=== PATIENT | female | born 1975 | race Caucasian/White ===

== ENCOUNTER 2018-10-06 02:00 | Inpatient (IN) ==
[2018-10-06] MEDS ORDERED: Morphine Inj 4 MG/ML Vial IV.PUSH ONE (02:21)
--- NOTE | 2018-10-06 02:25 | ED ---
HPI General Chief Complaint: Abdominal Pain Stated Complaint: ABD Pain Time Seen by Provider: 10/06/18 02:21 Source: patient Mode of arrival: ambulatory Limitations: no limitations History of Present Illness MD complaint: Reports abdominal pain Onset (ago): minute(s) Pain Consistency: constant Location: Reports LLQ and suprapubic Severity: severe Quality: Reports cramping, stabbing, aching and fullness Radiation: Reports LLQ and suprapubic Migration to: Reports LLQ and suprapubic Relieving factors: nothing Exacerbating factors: movement Context: Reports recent antibiotic use and history of similar episodes; Denies foreign travel, possible food poisoning, sick contacts, recent surgery/ procedure and recent injury Associated symptoms: Reports nausea; Denies vomiting, diarrhea, fever, chills, constipation, dysuria, hematemesis, hematochezia, melena, hematuria, anorexia and syncope Treatments prior to arrival: Denies NSAIDs, prescription analgesics and antacids Related Data Hx Last Menstrual Period: 2 weeks ago Patient : No Home Medications Medication Instructions Recorded Confirmed citalopram [Celexa] 20 mg PO DAILY 10/06/18 10/06/18 Allergies Allergy/AdvReac Type Severity Reaction Status Date / Time No Known Allergies Allergy Verified 10/06/18 02:01 Review of Systems ROS: all other systems reviewed are negative PMFSH Medical History Medical History Diverticulitis (Acute) Surgical History Surgical History History of (Acute) History of appendectomy (Acute) Social History Social History Substance History: No History of Abuse Second Hand Smoke Exposure: Yes Smoking Status: Current every day smoker Tobacco Type: Cigarettes How Often Do You Have a Drink Containing Alcohol: Never Recent Travel in [facility] within the Last 8 Weeks: No Recent Out of Country Travel within the Last 8 Weeks: No Immunization History Tetanus Immunization: <5 Years Exam Narrative Exam Narrative: GENERAL: Well-nourished, well-developed patient. SKIN: Focused skin assessment warm/dry. HEAD: Normocephalic. EYES: No scleral icterus. No injection or drainage. NECK: Supple, trachea midline. No JVD or lymphadenopathy. CARDIOVASCULAR: Regular rate and rhythm without murmurs, gallops, or rubs. RESPIRATORY: Breath sounds equal bilaterally. No accessory muscle use. GASTROINTESTINAL: Abdomen soft, very tender LLQ, nondistended. Pelvic exam: Normal external female exam no redness induration or lesions; bimanual exam no cervical motion tenderness no uterine enlargement no adnexal tenderness or enlargement. MUSCULOSKELETAL: No cyanosis, or edema. BACK: Nontender without obvious deformity. No CVA tenderness. Course Initial Documented Vital Signs Temperature 98.4 F 10/06/18 02:01 Pulse Rate 78 10/06/18 02:01 Respiratory Rate 16 10/06/18 02:01 Blood Pressure 143/76 H 10/06/18 02:01 Pulse Oximetry 97 10/06/18 02:01 Last Documented Vital Signs Temperature 99.1 F 10/07/18 03:58 Pulse Rate 88 10/07/18 03:58 Respiratory Rate 17 10/07/18 03:58 Blood Pressure 126/68 10/07/18 03:58 Pulse Oximetry 94 L 10/07/18 03:58 Medical Decision Making [facility] Narrative Medical decision making narrative: 43-year-old with history of diverticulitis with recent hospitalization times 10 days for acute diverticulitis currently not on antibiotic sudden onset of left lower quadrant pain radiating to the suprapubic region with associated nausea no vomiting no flank pain no reported dysuria frequency urgency hematuria or history of kidney stones. Patient was to have surgery however that was deferred. Patient states that pain is severe and worsened by ambulation; no report of vaginal discharge or vaginal bleeding. Last menstrual period 2 weeks ago and normal for her. Patient does have history of ovarian cyst. IV access obtained specimens collected and sent for resulting patient administered morphine sulfate 4 mg IV along with normal saline infusion and Zofran [address] abdomen pelvis ordered CT abdomen pelvis remarkable for acute diverticulitis with small collection of air next to the wall of the proximal sigmoid with associated wall thickening and multiple diverticulum per reading radiologist; patient is informed of imaging results Bimanual exam unremarkable for no acute intrapelvic pain or mass. Medical Screen Exam Complete: Yes Emergency Medical Condition: Yes Lab Data Result diagrams: 10/06/18 02:31 10/06/18 02:31 POC Results POC Urine Results Negative Lab Results 10/06/18 10/06/18 10/06/18 Range/Units 02:31 02:31 04:30 WBC 12.7 H (4.0-11.0) th/mm3 RBC 4.52 (4.00-5.30) mil/mm3 Hgb 13.7 (11.6-15.3) gm/dL Hct 39.7 (35.0-46.0) % MCV 87.8 (80.0-100.0) fL MCH 30.2 (27.0-34.0) pg MCHC 34.4 (32.0-36.0) % RDW 14.2 (11.6-17.2) % Plt Count 286 (150-450) th/mm3 MPV 8.6 (7.0-11.0) fL Neut % (Auto) 66.9 (16.0-70.0) % Lymph % (Auto) 24.7 (9.0-44.0) % Harmon % (Auto) 3.5 (0.0-8.0) % Eos % (Auto) 4.2 H (0.0-4.0) % Baso % (Auto) 0.7 (0.0-2.0) % Neut # (Auto) 8.5 H (1.8-7.7) th/mm3 Lymph # (Auto) 3.1 (1.0-4.8) th/mm3 Harmon # (Auto) 0.4 (0.0-0.9) th/mm3 Eos # (Auto) 0.5 H (0.0-0.4) th/mm3 Baso # (Auto) 0.1 (0.0-0.2) th/mm3 WBC Differential . Differential Comment Auto diff final Sodium 140 (136-145) meq/L Potassium 4.2 (3.5-5.1) meq/L Chloride 105 (98-107) meq/L Carbon Dioxide 28.4 (21.0-32.0) meq/L Anion Gap 7 (5-15) meq/L BUN 12 (7-18) mg/dL Creatinine 0.91 (0.50-1.00) mg/dL Estimated GFR 68 L (>89) mL/min Random Glucose 103 (74-106) mg/dL Calcium 8.9 (8.5-10.1) mg/dL Magnesium 2.2 (1.5-2.5) mg/dL Total Bilirubin 0.4 (0.2-1.0) mg/dL AST 19 (15-37) U/L ALT 27 (10-53) U/L Alkaline Phosphatase 70 (45-117) U/L Total Protein 7.5 (6.4-8.2) g/dL Albumin 3.7 (3.4-5.0) g/dL Lipase 92 (73-393) U/L Urine Color Yellow (Yellw/Straw) Urine Clarity Clear (Clear) Urine pH 6.0 (5.0-8.5) Ur Specific Owen 1.012 (1.002-1.035) Urine Protein Negative (Neg-Trace) mg/dL Urine Glucose (UA) Negative (Negative) mg/dL Urine Ketones Negative (Negative) mg/dL Urine Occult Blood Negative (Negative) Urine Nitrate Negative (Negative) Urine Bilirubin Negative (Negative) Urine Urobilinogen Less than 2 (Less than 2) mg/dL Ur Leukocyte Esterase Negative (Negative) Urine RBC 1 (0-3) /hpf Urine WBC Less than 1 (0-5) /hpf Ur Squamous Epith Cells 1 (0-5) /hpf Urine Bacteria Rare H (None) /hpf Urine Mucus Few H (Occasional) /lpf Micro UA Comment Culture not ind Ur Microscopic Review Not Reportable Urine Culture Comments Culture not ind Imaging Data Radiologist's impression: Abdomen X-Ray 10/06/18 00:00 CONCLUSION: Nonspecific bowel gas pattern with mildly distended air-filled loops of mid small bowel. Abdomen/Pelvis CT 10/06/18 02:21 CONCLUSION: 1. Acute diverticulitis involving the proximal sigmoid colon with small contained gas collection adjacent to the bowel. There is a small amount of fluid in the posterior pelvis. 2. The left ovary is more prominent than the right 3. Small noncalcified pulmonary nodule right lung base measuring approximately 6 mm. A one-year follow-up noncontrast chest CT is recommended. Discharge Plan Discharge Disposition Patient Disposition: 30 Still Patient Discharge Condition Condition: Stable Discharge Details Diagnosis: Diverticulitis, Pulmonary nodule, Cyst of left ovary Physicians Team ED Provider: Kelsey Patel Primary Care Provider: Jose M Alonso Attending Provider: Arnulfo Alva Other Providers: Josef Gagnon Status ED Status: Left Department Discharge Information Discharge Date/Time: 10/06/18 16:01
[2018-10-06] MEDS ORDERED: Sod Chloride 0.9% Inj 1,000 ML IV.CONT SCH (02:30)
[2018-10-06 02:38] LABS: Baso # (Auto) 0.1 th/mm3 (0.0-0.2); Baso % (Auto) 0.7 % (0.0-2.0); Eos # (Auto) 0.5 th/mm3 (0.0-0.4); Eos % (Auto) 4.2 % (0.0-4.0); Hematocrit 39.7 % (35.0-46.0); Hemoglobin 13.7 gm/dL (11.6-15.3); Lymph # (Auto) 3.1 th/mm3 (1.0-4.8); Lymph % (Auto) 24.7 % (9.0-44.0); Mean Corpuscular HGB Conc 34.4 % (32.0-36.0); Mean Corpuscular Hemoglobin 30.2 pg (27.0-34.0); Mean Corpuscular Volume 87.8 fL (80.0-100.0); Mean Platelet Volume 8.6 fL (7.0-11.0); Mono # (Auto) 0.4 th/mm3 (0.0-0.9); Mono % (Auto) 3.5 % (0.0-8.0); Neut # (Auto) 8.5 th/mm3 (1.8-7.7); Neut % (Auto) 66.9 % (16.0-70.0); Platelet Count 286 th/mm3 (150-450); Red Blood Count 4.52 mil/mm3 (4.00-5.30); Red Cell Distribution Width 14.2 % (11.6-17.2); White Blood Count 12.7 th/mm3 (4.0-11.0)
[2018-10-06 02:58] LABS: Alanine Aminotransferase 27 U/L (10-53); Albumin 3.7 g/dL (3.4-5.0); Anion Gap 7 meq/L (5-15); Aspartate Aminotransferase 19 U/L (15-37); Blood Urea Nitrogen 12 mg/dL (7-18); Calcium 8.9 mg/dL (8.5-10.1); Carbon Dioxide 28.4 meq/L (21.0-32.0); Chloride 105 meq/L (98-107); Glomerular Filtration Rate 68 mL/min (>89); Glucose,Random 103 mg/dL (74-106); Lipase 92 U/L (73-393); Magnesium 2.2 mg/dL (1.5-2.5); Potassium 4.2 meq/L (3.5-5.1); Sodium 140 meq/L (136-145)
[2018-10-06 03:00] LABS: Alkaline Phosphatase 70 U/L (45-117); Total Protein 7.5 g/dL (6.4-8.2)
[2018-10-06] MEDS ORDERED: Ketorolac Inj 30 MG/ML (IVP) Vial IV.PUSH ONE (03:33)
--- NOTE | 2018-10-06 04:40 | CT ---
EXAM DATE: 10/06/2018 4:19 AM EST AGE/SEX: 43 years / Female INDICATIONS: Left lower quadrant pain. CLINICAL DATA: This is the patient's initial encounter. Patient reports that signs and symptoms have been present for 1 day and indicates a pain score of 9/10. MEDICAL/SURGICAL HISTORY: Diverticulitis. Appendectomy. section. ORAL CONTRAST: No oral contrast ingested. RADIATION DOSE: 18.13 CTDI (mGy) COMPARISON: No prior exams available for comparison. TECHNIQUE: Multiple contiguous axial images were obtained through the abdomen and pelvis following b olus infusion of 95 ml Omnipaque 350 (iohexol) nonionic water-soluble contrast as a single exam dos e. No oral contrast ingested. Using automated exposure control and adjustment of the mA and/or kV ac cording to patient size, radiation dose was kept as low as reasonably achievable to obtain optimal di agnostic quality images. DICOM format image data is available electronically for review and comparis on. FINDINGS: Lower Lungs: The visualized lower lungs are clear except for a 6 mm noncalcified pulmonary nodule rig ht lower lobe. Liver: The liver has a homogeneous density without space-occupying lesion. There is no dilation of th e biliary tree. Spleen: Homogeneous density without enlargement. Pancreas: Unremarkable without mass or calcification. Kidneys: Normal in size and shape. No evidence of mass or hydronephrosis. Adrenal Glands: Unremarkable. Aorta: The aorta and proximal iliac vessels are grossly unremarkable without aneurysmal dilation. Bowel/Mesentery: No oral contrast was given. There is wall thickening and inflammatory change involv ing the proximal sigmoid colon with several diverticuli. There is a small contained gas collection ad jacent to the anterior bowel best seen on axial image #74. There is a small amount of fluid in the po sterior pelvis. There is a normal appendix. Abdominal Wall: Intact. Retroperitoneum: No evidence of adenopathy in the retrocrural, para-aortic, or deep pelvic regions. Bladder: Contours are smooth. Reproductive Organs: The uterus and right ovary are unremarkable in appearance. The left ovary is pr ominent in size measuring up to approximately 5 x 3.8 cm. Inguinal: The inguinal region is unremarkable without evidence of adenopathy. Bony Structures: Unremarkable. CONCLUSION: 1. Acute diverticulitis involving the proximal sigmoid colon with small contained gas collection adj acent to the bowel. There is a small amount of fluid in the posterior pelvis. 2. The left ovary is more prominent than the right 3. Small noncalcified pulmonary nodule right lung base measuring approximately 6 mm. A one-year foll ow-up noncontrast chest CT is recommended. Electronically signed by: Richard Carolina MD 10/06/2018 4:39 AM EST
[2018-10-06] MEDS ORDERED: Ciprofloxacin 400 MG/200 ML 400 MG/200 ML PIGGYBACK IV.SIG ONE (04:54)
[2018-10-06 04:59] LABS: Bacteria,Urine Rare /hpf; Bilirubin,Urine Negative (Negative); Clarity,Urine Clear (Clear); Color,Urine Yellow (Yellw/Straw); Glucose,Urine (UA) Negative (Negative); Leukocyte Esterase,Urine Negative (Negative); Mucus,Urine Few /lpf (Occasional); Nitrite,Urine Negative (Negative); Specific Gravity,Urine 1.012 (1.002-1.035); Squamous Epithelial Cell,Urine 1 /hpf (0-5)
[2018-10-06] MEDS ORDERED: Morphine Inj 4 MG/ML Vial IV.PUSH PRN (08:06)
[2018-10-06] MEDS: Sod Chloride 0.9% Inj 1,000 ML IV.CONT SCH ×3 (08:19→22:08)
[2018-10-06] MEDS ORDERED: Ketorolac Inj 30 MG/ML (IVP) Vial IV.PUSH PRN (08:50)
--- NOTE | 2018-10-06 08:55 | P.HPIM ---
History of Present Illness Primary Care Physician: Jose M Alonso Chief Complaint: Abdominal pain History of Present Illness: Mrs. Hernández is a pleasant 43 y/o female with recent history of diverticulitis in 07/2018. She reports that she was hospitalized at [facility] for 10 days with acute diverticulitis and SBO. Pt required NGT placement and was treated with IV Cipro and Flagyl. PT did not require any surgical intervention at that time. She states that after that discharge from the hospital her abdominal pain never fully resolved. She had another exacerbation of abdominal pain a few weeks ago and again was treated with oral Cipro and Flagyl. 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 No reported nausea/vomiting, diarrhea, fevers or chills. She was sent down to the ED for further evaluation. Labs in the ED noted elevated WBC count of 12.7. CT Abd/pelvis was performed and revealed acute diverticulitis involving the proximal sigmoid colon with small contained gas collection adjacent to the bowel, a small amount of fluid in the posterior pelvis, left ovary is more prominent than the right, and a small noncalcified pulmonary nodule right lung base measuring approximately 6 mm. Pt was given a dose of IV Morphine, Cipro and Flagyl in the ED and started on IVF. She reports that the Morphine did not help with the pain much at all. She states that her last BM was 2-3 days ago which is not unusual for her. She had been seen by GI outpt prior to this last occurrence of diverticulitis and was recommended to have an EGD/colonoscopy but was to be fully treated prior to these procedures. Past Medical Hx: Diverticulitis Hx of leukocytosis, etiology undetermined Depression TObacco use Past Surgical Hx: Cesarian section x 2 Appendectomy Family Hx: Both parent with previous diverticulitit Grandmother with hx of colon cancer in her 60-70s Social Hx: (+)Tobacco use, smokes 3/4 ppd x 20+ years Denies any alcohol or illicit drug use She is an RN at [employer] Diagnosis (1) Diverticulitis: (2) Pulmonary nodule: (3) Tobacco use: Inpatient Certification Inpatient Certification: I certify that the inpatient services were ordered in accordance with Medicare regulations governing the order. This includes certification that hospital inpatient services are reasonable and necessary and in the case of services not specified as inpatient-only under 42 CFR 419.22(n), that they are appropriately provided as inpatient services in accordance to with the 2-midnight benchmark under 43 CFR 412.3(e) Estimated Total Length of Stay (Days): 2 Plans for Post Hospital Care: Home Medications and Allergies Allergies Allergy/AdvReac Type Severity Reaction Status Date / Time No Known Allergies Allergy Verified 10/06/18 02:01 Home Medications Medication Instructions Recorded Confirmed Type citalopram [Celexa] 20 mg PO DAILY 10/06/18 10/06/18 History Active Medications: Active Medications Acetaminophen (Tylenol) 650 mg PO Q4H PRN PRN Reason: Temp > 100.4 Hydrocodone Bitart/Acetaminophen ([place] 5/325) 1 tab PO Q4H PRN PRN Reason: pain 2-10 Al Hydroxide/Mg Hydroxide (Milk Of Magnaby Liq) 30 ml PO Q12H PRN PRN Reason: Mild Constipation Citalopram Hydrobromide (Celexa) 20 mg PO DAILY RICH Sodium Chloride (Ns Inj) 1,000 mls @ 125 mls/hr IV.CONT .Q8H RICH Stop: 10/06/18 10:29 Last Admin: 10/06/18 02:35 Dose: 125 mls/hr Sodium Chloride (Ns Inj) 1,000 mls @ 100 mls/hr IV.CONT .Q10H RICH Last Admin: 10/06/18 08:19 Dose: 100 mls/hr Piperacillin/Tazobactam/Dextrose (Zosyn 3.375 Gm Premix) 50 mls @ 100 mls/hr IV.SIG Q6H [facility] Ketorolac Tromethamine (Toradol Inj) 15 mg IV.PUSH Q6H PRN PRN Reason: breakthrough pain over 7 Nicotine (Habitrol 14 Mg Patch.24 Hr) 1 patch T-DERMAL DAILY RICH Ondansetron HCl (Zofran Inj) 4 mg IV.PUSH Q6H PRN PRN Reason: NAUSEA OR VOMITING Patch Removal (Remove Old Patch) 1 each T-DERMAL DAILY [facility] Senna/Docusate Sodium (Sherri-Colace) 1 tab PO BID [facility] Sodium Chloride (Ns Flush) 2 ml IV.FLUSH PRN PRN PRN Reason: FLUSH AFTER USING IV ACCESS Physical Exam Vital signs: Last Vital Signs Temp 98.4 F 10/06/18 02:01 Pulse 70 10/06/18 08:06 Resp 18 10/06/18 08:06 BP 135/65 10/06/18 08:06 Pulse Ox 100 10/06/18 08:06 Narrative: GENERAL: NAD, AAOx3 SKIN: Warm and dry. HEENT: Atraumatic. Normocephalic. Pupils equal and round. No scleral icterus. No injection or drainage. No nasal bleeding or discharge. Mucous membranes pink and moist. NECK: Trachea midline. No JVD. CARDIO: Regular rate and rhythm. RESP: No accessory muscle use. Clear to auscultation. Breath sounds equal bilaterally. ABD: Decreased BS, soft, nondistended, left sided tenderness to palpation, no guarding or rebound EXT: Extremities without clubbing, cyanosis, or edema. No obvious deformities. NEURO: Awake and alert. No obvious cranial nerve deficits. Motor grossly within normal limits. Five out of 5 muscle strength in the arms and legs. Normal speech. PSYCHIATRIC: Appropriate mood and affect; insight and judgment normal. Results Labs CBC & Chem 7: 10/06/18 02:31 10/06/18 02:31 Imaging Abdomen/Pelvis CT 10/06/18 02:21 CONCLUSION: 1. Acute diverticulitis involving the proximal sigmoid colon with small contained gas collection adjacent to the bowel. There is a small amount of fluid in the posterior pelvis. 2. The left ovary is more prominent than the right 3. Small noncalcified pulmonary nodule right lung base measuring approximately 6 mm. A one-year follow-up noncontrast chest CT is recommended. Caprini VTE Risk Assessment Caprini VTE Risk Assessment: No/Low Risk (score <= 1) Caprini Risk Assessment Model: Point Value = 1 Point Value = 2 Point Value = 3 Point Value = 5 Age 41-60 Minor surgery BMI > 25 kg/m2 Swollen legs Varicose veins or History of unexplained or recurrent spontaneous Oral contraceptives or hormone replacement Sepsis (< 1 month) Serious lung disease, including pneumonia (< 1 month) Abnormal pulmonary function Acute myocardial infarction Congestive heart failure (< 1 month) History of inflammatory bowel disease Medical patient at bed rest Age 61-74 Arthroscopic surgery Major open surgery (> 45 min) Laparoscopic surgery (> 45 min) Malignancy Confined to bed (> 72 hours) Immobilizing plaster cast Central venous access Age >= 75 History of VTE Family history of VTE Factor V Leiden Prothrombin [id number] Lupus anticoagulant Anticardiolipin antibodies Elevated serum homocysteine Heparin-induced thrombocytopenia Other congenital or acquired thrombophilia Stroke (< 1 month) Elective arthroplasty Hip, pelvis, or leg fracture Acute spinal cord injury (< 1 month) Prophylaxis Regimen: Total Risk Factor Score Risk Level Prophylaxis Regimen 0-1 Low Early ambulation 2 Moderate Order ONE of the following: *Sequential Compression Device (SCD) *Heparin 5000 units SQ BID 3-4 Higher Order ONE of the following medications: *Heparin 5000 units SQ TID *Enoxaparin/Lovenox 40 mg SQ daily (WT < 150 kg, CrCl > 30 mL/min) *Enoxaparin/Lovenox 30 mg SQ daily (WT < 150 kg, CrCl > 10-29 mL/min) *Enoxaparin/Lovenox 30 mg SQ BID (WT < 150 kg, CrCl > 30 mL/min) AND/OR *Sequential Compression Device (SCD) 5 or more Highest Order ONE of the following medications: *Heparin 5000 units SQ TID (Preferred with Epidurals) *Enoxaparin/Lovenox 40 mg SQ daily (WT < 150 kg, CrCl > 30 mL/min) *Enoxaparin/Lovenox 30 mg SQ daily (WT < 150 kg, CrCl > 10-29 mL/min) *Enoxaparin/Lovenox 30 mg SQ BID (WT < 150 kg, CrCl > 30 mL/min) AND *Sequential Compression Device (SCD) Assessment and Plan Assessment (1) Diverticulitis: Code(s): K57.92 - Diverticulitis of intestine, part unspecified, without perforation or abscess without bleeding Status: Acute (2) Pulmonary nodule: Code(s): R91.1 - Solitary pulmonary nodule Status: Acute (3) Tobacco use: Code(s): Z72.0 - Tobacco use Status: Chronic Plan Acute diverticulitis likely with microperforation/air noted on CT - Pt is a 43 y/o female with recent history of diverticulitis in 07/2018. She reports that she was hospitalized at [facility] for 10 days with acute diverticulitis and SBO. Pt required NGT placement and was treated with IV Cipro and Flagyl. Pt did not require any surgical intervention at that time. She states that after that discharge from the hospital her abdominal pain never fully resolved. She had another exacerbation of abdominal pain a few weeks ago and again was treated with oral Cipro and Flagyl. 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 - Labs in the ED noted elevated WBC count of 12.7. - CT Abd/pelvis (10/06/18): - Acute diverticulitis involving the proximal sigmoid colon with small contained gas collection adjacent to the bowel, a small amount of fluid in the posterior pelvis - Left ovary is more prominent than the right - Small noncalcified pulmonary nodule right lung base measuring approximately 6 mm. Pt recommended to have a repeat noncontrasted CT Chest in 1 year - General Surgical consultation. - Pt was given a dose of IV Morphine, Cipro and Flagyl in the ED and started on IVF. - Give IV Zosyn - IVF - Pt is NPO - Pain meds PRN - Zofran PRN - Tylenol PRN - Supportive care Pulmonary nodule - Pt with incidental finding of pulmonary nodules in the right lung base - She will need repeat imaging as an outpt. Tobacco use - Nicotine patch. Attending Attestation Patient examined. Assessment and plan formulated with Sulma Mendez PA-C. I agree with the above. diverticulitis. recurrent.small ant gas collection. diffuse abdomen tenderness. no rebound. previous CT's in July reviewed x 4. cont zosyn and IVF. gen surg evaluation. kub. prn pain control. H&P: Quality VTE Deep Vein Thrombosis/Pulmonary Embolism Present on Admission: No
[2018-10-06] MEDS: Piperacil/Tazo 3.375 GM Premix 50 ML IV.SIG SCH ×3 (09:52→21:14)
[2018-10-06] MEDS: Senna/Docusate Sodium 8.6/50 MG Tablet PO SCH ×2 (09:52→21:14)
[2018-10-06] MEDS: Citalopram 20 MG Tablet PO SCH (11:07)
[2018-10-06] MEDS: Acetaminophen 325 MG Tablet PO PRN ×2 (13:36→22:08)
[2018-10-06] MEDS ORDERED: HYDROmorphone PF Inj 1 MG/ML Ampul IV.PUSH PRN (16:15)
--- NOTE | 2018-10-06 17:13 | P.CONGS ---
[facility] Gen Surgery Consult Note Consult date: 10/06/18 Narrative: 43 yo F presents with severe acute onset of left lower abdominal pain last night at 1 am while at work here at [employer] in [employer]U. Evaluation revealed leukocytosis and CT a/p shows diverticulitis with contained perforation. She was hospitalized at [facility] for 10 days in early July due to diverticulitis- there was involvement with small bowel causing SBO but I do not think there was perforation or abscess. She has had persistent LLQ milder intermittent pain at home since July and stools are thin caliber. Review of Systems All other systems reviewed negative except as stated in [facility] - History History Provided By: Patient - Medical History Medical History: Medical History (Last Reviewed 10/06/18 @ 02:23 by Kelsey Patel MD) Diverticulitis - Surgical History Surgical History: Surgical History (Last Reviewed 10/06/18 @ 02:23 by Kelsey Patel MD) History of History of appendectomy - Tobacco History Second Hand Smoke Exposure: Yes Tobacco Use In Past 30 Days: Yes Smoking Status: Current every day smoker Tobacco Type: Cigarettes - Alcohol History How Often Do You Have a Drink Containing Alcohol: Never - Substance Use History Substance History: No History of Abuse - Travel History Recent Travel in the [place] Within the Last 8 Weeks: No Recent Travel Out of the Country Within the Last 8 Weeks: No - Immunization History Tetanus Immunization: <5 Years Medications and Allergies Active Medications: Active Medications Acetaminophen (Tylenol) 650 mg PO Q4H PRN PRN Reason: Temp > 100.4 Last Admin: 10/06/18 13:36 Dose: 650 mg Al Hydroxide/Mg Hydroxide (Milk Of Florinda Flaherty) 30 ml PO Q12H PRN PRN Reason: Mild Constipation Citalopram Hydrobromide (Celexa) 20 mg PO DAILY RICH Last Admin: 10/06/18 11:07 Dose: Not Given Hydromorphone HCl (Dilaudid Pf Inj) 0.5 mg IV.PUSH Q4H PRN PRN Reason: PAIN 2-5 Last Admin: 10/06/18 16:17 Dose: 0.5 mg Hydromorphone HCl (Dilaudid Pf Inj) 1 mg IV.PUSH Q4H PRN PRN Reason: PAIN 6-10;IF UNABLE TO TAKE PO Sodium Chloride (Ns Inj) 1,000 mls @ 100 mls/hr IV.CONT .Q10H [facility] Last Admin: 10/06/18 08:19 Dose: 100 mls/hr Piperacillin/Tazobactam/Dextrose (Zosyn 3.375 Gm Premix) 50 mls @ 100 mls/hr IV.SIG Q6H [facility] Last Admin: 10/06/18 16:17 Dose: 100 mls/hr Nicotine (Habitrol 14 Mg Patch.24 Hr) 1 patch T-DERMAL DAILY [facility] Last Admin: 10/06/18 10:02 Dose: 1 patch Ondansetron HCl (Zofran Inj) 4 mg IV.PUSH Q6H PRN PRN Reason: NAUSEA OR VOMITING Last Admin: 10/06/18 16:17 Dose: 4 mg Patch Removal (Remove Old Patch) 1 each T-DERMAL DAILY [facility] Last Admin: 10/06/18 11:07 Dose: Not Given Senna/Docusate Sodium (Sherri-Colace) 1 tab PO BID [facility] Last Admin: 10/06/18 09:52 Dose: 1 tab Sodium Chloride (Ns Flush) 2 ml IV.FLUSH PRN PRN PRN Reason: FLUSH AFTER USING IV ACCESS Allergies Allergy/AdvReac Type Severity Reaction Status Date / Time No Known Allergies Allergy Verified 10/06/18 02:01 Home Medications Medication Instructions Recorded Confirmed Type citalopram [Celexa] 20 mg PO DAILY 10/06/18 10/06/18 History Exam Vital signs: Vital Signs 10/06/18 02:01 10/06/18 08:06 10/06/18 12:09 Temperature 98.4 F Pulse Rate 78 70 79 Respiratory Rate 16 18 18 Blood Pressure 143/76 H 135/65 138/65 Pulse Oximetry 97 100 96 10/06/18 13:30 Temperature 100 F H Pulse Rate 81 Respiratory Rate 18 Blood Pressure 120/60 Pulse Oximetry 96 Intake & Output 10/05/18 10/06/18 10/06/18 18:59 06:59 18:59 Intake Total 100 / 100 1250 / 1250 Balance 100 / 100 1250 / 1250 Weight 117.934 kg 118.1 kg Intake: IV 100 / 100 1250 / 1250 NS Inj 1,000 ML @ 125 mls/hr IV 1000 / 1000 .CONT .Q8H [facility] Rx#:[id number] Cipro 400 MG/200 ML Inj 400 mg 200 / 200 In 200 ml @ 200 mls/hr IV.SIG ONCE ONE Rx#:[id number] Zosyn 3.375 GM Premix 50 ML @ 50 / 50 100 mls/hr IV.SIG Q6H [facility] Rx#: [id number] Flagyl 500 MG Inj 100 ML @ 100 100 / 100 mls/hr IV.SIG ONCE ONE Rx#: [id number] Other: Weight On Admission 117.93 kg Narrative: GENERAL: Awake and alert. No acute distress. Cooperative. Obese. HEAD: Normocephalic. Atraumatic. EYES: Pupils equal round and reactive to light bilaterally. No scleral icterus. ENT: Moist oral mucosa. NECK: Trachea midline. CHEST: Nonlabored breathing. No respiratory distress. CARDIOVASCULAR: Regular rate and rhythm. ABDOMEN: Soft. + rebound in bilateral lower abdomen. No rebound or ttp in upper abdomen. EXTREMITIES: No cyanosis or edema. SKIN: Warm, dry, nonjaundiced. Results - Labs 10/06/18 02:31 10/06/18 02:31 Laboratory Results - last 24 hr 10/06/18 10/06/18 10/06/18 02:31 02:31 04:30 WBC 12.7 H RBC 4.52 Hgb 13.7 Hct 39.7 MCV 87.8 MCH 30.2 MCHC 34.4 RDW 14.2 Plt Count 286 MPV 8.6 Neut % (Auto) 66.9 Lymph % (Auto) 24.7 [place] % (Auto) 3.5 Eos % (Auto) 4.2 H Baso % (Auto) 0.7 Neut # (Auto) 8.5 H Lymph # (Auto) 3.1 [place] # (Auto) 0.4 Eos # (Auto) 0.5 H Baso # (Auto) 0.1 WBC Differential . Differential Comment Auto diff final Sodium 140 Potassium 4.2 Chloride 105 Carbon Dioxide 28.4 Anion Gap 7 BUN 12 Creatinine 0.91 Estimated GFR 68 L Random Glucose 103 Calcium 8.9 Magnesium 2.2 Total Bilirubin 0.4 AST 19 ALT 27 Alkaline Phosphatase 70 Total Protein 7.5 Albumin 3.7 Lipase 92 Urine Color Yellow Urine Clarity Clear Urine pH 6.0 Ur Specific [place] 1.012 Urine Protein Negative Urine Glucose (UA) Negative Urine Ketones Negative Urine Occult Blood Negative Urine Nitrate Negative Urine Bilirubin Negative Urine Urobilinogen Less than 2 Ur Leukocyte Esterase Negative Urine RBC 1 Urine WBC Less than 1 Ur Squamous Epith Cells 1 Urine Bacteria Rare H Urine Mucus Few H Micro UA Comment Culture not ind Ur Microscopic Review Not Reportable Urine Culture Comments Culture not ind - Imaging Imaging: ITS Impressions Abdomen/Pelvis CT 10/06/18 02:21 CONCLUSION: 1. Acute diverticulitis involving the proximal sigmoid colon with small contained gas collection adjacent to the bowel. There is a small amount of fluid in the posterior pelvis. 2. The left ovary is more prominent than the right 3. Small noncalcified pulmonary nodule right lung base measuring approximately 6 mm. A one-year follow-up noncontrast chest CT is recommended. CT scan - abdomen: report reviewed, image reviewed CT scan - pelvis: report reviewed, image reviewed Assessment and Plan - Assessment (1) Diverticulitis of colon with perforation Code(s): K57.20 - Diverticulitis of large intestine with perforation and abscess without bleeding Status: Acute - Plan Diverticulitis with localized perforation. She has localized peritonitis and is stable at this point. Recommend attempted nonoperative management with IV antibiotics n.p.o. and IV fluids. Will reassess exam and labs in the morning. Ideally she could avoid an operation during this admission and have close follow -up with plans for sigmoid colectomy in the near future. Discussed options with the patient and plan.
--- NOTE | 2018-10-06 17:39 | XR ---
EXAM DATE: 10/06/2018 5:35 PM EST AGE/SEX: 43 years / Female INDICATIONS: Mid abdominal pain. CLINICAL DATA: This is the patient's initial encounter. Patient reports that signs and symptoms have been present for 3 days and indicates a pain score of 9/10. MEDICAL/SURGICAL HISTORY: Diverticulitis. Appendectomy. section. COMPARISON: No prior exams available for comparison. FINDINGS: 2 supine AP views of the abdomen. Multiple air-filled mildly distended loops of mid small bowel. Sca ttered gas and stool in the colon. No abnormal abdominal calcification. CONCLUSION: Nonspecific bowel gas pattern with mildly distended air-filled loops of mid small bowel. Electronically signed by: Eric Grider MD 10/06/2018 5:38 PM EST
[2018-10-07] MEDS: Piperacil/Tazo 3.375 GM Premix 50 ML IV.SIG SCH ×4 (04:08→21:00)
[2018-10-07] MEDS: HYDROmorphone PF Inj 1 MG/ML Ampul IV.PUSH PRN ×2 (04:13→09:47)
[2018-10-07] MEDS: Sod Chloride 0.9% Inj 1,000 ML IV.CONT SCH ×4 (04:17→19:35)
[2018-10-07 07:21] LABS: Baso % (Auto) 0.2 % (0.0-2.0); Eos % (Auto) 0.2 % (0.0-4.0); Hematocrit 32.5 % (35.0-46.0); Hemoglobin 11.1 gm/dL (11.6-15.3); Lymph # (Auto) 1.6 th/mm3 (1.0-4.8); Lymph % (Auto) 10.5 % (9.0-44.0); Mean Corpuscular HGB Conc 34.1 % (32.0-36.0); Mean Corpuscular Hemoglobin 30.6 pg (27.0-34.0); Mean Platelet Volume 8.9 fL (7.0-11.0); Mono # (Auto) 0.6 th/mm3 (0.0-0.9); Mono % (Auto) 3.7 % (0.0-8.0); Neut # (Auto) 13.3 th/mm3 (1.8-7.7); Neut % (Auto) 85.4 % (16.0-70.0); Platelet Count 213 th/mm3 (150-450); Red Blood Count 3.62 mil/mm3 (4.00-5.30); Red Cell Distribution Width 14.4 % (11.6-17.2); White Blood Count 15.6 th/mm3 (4.0-11.0)
[2018-10-07 07:48] LABS: Carbon Dioxide 25.4 meq/L (21.0-32.0); Potassium 3.7 meq/L (3.5-5.1)
[2018-10-07] MEDS: Acetaminophen 325 MG Tablet PO PRN (09:45)
[2018-10-07] MEDS: Citalopram 20 MG Tablet PO SCH (09:45)
[2018-10-07] MEDS: Senna/Docusate Sodium 8.6/50 MG Tablet PO SCH ×2 (09:46→21:04)
--- NOTE | 2018-10-07 11:08 | P.PNIM ---
Subjective Interval history: overall less abdomen pain feels dry. no bm. no vomiting. Physical Exam Vital signs: Last Vital Signs Temp 100.5 F H 10/07/18 08:00 Pulse 92 H 10/07/18 08:00 Resp 20 10/07/18 08:00 BP 121/67 10/07/18 08:00 Pulse Ox 95 10/07/18 08:00 Narrative: heart reg lung cta abd s/mild left sided abdomen tenderness. minimal bs ext no edema Results Labs CBC & Chem 7: 10/07/18 06:53 10/07/18 06:53 Assessment and Plan Assessment (1) Diverticulitis of colon with perforation: Code(s): K57.20 - Diverticulitis of large intestine with perforation and abscess without bleeding Status: Acute Plan Acute diverticulitis likely with microperforation/air noted on CT - Pt is a 43 y/o female with recent history of diverticulitis in 07/2018. She reports that she was hospitalized at [facility] for 10 days with acute diverticulitis and SBO. Pt required NGT placement and was treated with IV Cipro and Flagyl. Pt did not require any surgical intervention at that time. She states that after that discharge from the hospital her abdominal pain never fully resolved. She had another exacerbation of abdominal pain a few weeks ago and again was treated with oral Cipro and Flagyl. 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 - Labs in the ED noted elevated WBC count of 12.7. - CT Abd/pelvis (10/06/18): - Acute diverticulitis involving the proximal sigmoid colon with small contained gas collection adjacent to the bowel, a small amount of fluid in the posterior pelvis - Left ovary is more prominent than the right - Small noncalcified pulmonary nodule right lung base measuring approximately 6 mm. Pt recommended to have a repeat noncontrasted CT Chest in 1 year - General Surgical consultation. - continue iv zosyn. monitor labs - prn toradol and dilaudid -monitor for ileus - cont ivf. ambulation -diet per general surgery -prn zofran -dvt prophylaxis. Pulmonary nodule - Pt with incidental finding of pulmonary nodules in the right lung base - She will need repeat imaging as an outpt. Tobacco use - Nicotine patch. Progress Note: Quality VTE Deep Vein Thrombosis/Pulmonary Embolism Present on Admission: No _ (1) Diverticulitis of colon with perforation Qualifiers: Diverticulitis bleeding:
--- NOTE | 2018-10-07 13:27 | P.PNGS ---
Subjective Interval history: Pain is improved. Some nausea with pain meds. WBC 15. Physical Exam Vital signs: Vital Signs 10/06/18 13:30 10/06/18 16:00 10/06/18 20:00 Temperature 100 F H 99.1 F 101.2 F H Pulse Rate 81 85 87 Respiratory Rate 18 18 19 Blood Pressure 120/60 113/63 141/70 H Pulse Oximetry 96 96 96 10/07/18 00:05 10/07/18 03:58 10/07/18 08:00 Temperature 99.6 F 99.1 F 100.5 F H Pulse Rate 96 H 88 92 H Respiratory Rate 19 17 20 Blood Pressure 131/75 126/68 121/67 Pulse Oximetry 94 L 94 L 95 10/07/18 12:00 Temperature 99.4 F Pulse Rate 93 H Respiratory Rate 20 Blood Pressure 109/62 Pulse Oximetry 95 Intake & Output 10/06/18 10/07/18 10/07/18 18:59 06:59 18:59 Intake Total 2100 / 2100 1100 / 1100 1250 / 1250 Output Total 550 / 550 Balance 2100 / 2100 550 / 550 1250 / 1250 Weight 118.1 kg 118.2 kg Intake: IV 2100 / 2100 1100 / 1100 1250 / 1250 NS Inj 1,000 ML @ 100 mls/hr IV 1800 / 1800 1000 / 1000 1200 / 1200 .CONT .Q10H [facility] Rx#:[id number] Cipro 400 MG/200 ML Inj 400 mg 200 / 200 In 200 ml @ 200 mls/hr IV.SIG ONCE ONE Rx#:[id number] Zosyn 3.375 GM Premix 50 ML @ 100 / 100 100 / 100 50 / 50 100 mls/hr IV.SIG Q6H [facility] Rx#: [id number] Output: Urine 550 / 550 Other: Weight On Admission 117.93 kg Narrative: NAD Abd: soft, localized ttp in LLQ, remainder nontender Results - Labs 10/07/18 06:53 10/07/18 06:53 Laboratory Results - last 24 hr 10/07/18 10/07/18 06:53 06:53 WBC 15.6 H RBC 3.62 L Hgb 11.1 L D Hct 32.5 L MCV 90.0 MCH 30.6 MCHC 34.1 RDW 14.4 Plt Count 213 MPV 8.9 Neut % (Auto) 85.4 H Lymph % (Auto) 10.5 [place] % (Auto) 3.7 Eos % (Auto) 0.2 Baso % (Auto) 0.2 Neut # (Auto) 13.3 H Lymph # (Auto) 1.6 [place] # (Auto) 0.6 Eos # (Auto) 0.0 Baso # (Auto) 0.0 WBC Differential . Differential Comment Auto diff final Sodium 141 Potassium 3.7 Chloride 107 Carbon Dioxide 25.4 Anion Gap 9 BUN 9 Creatinine 0.77 Estimated GFR 82 L Random Glucose 102 Calcium 8.0 L D - Imaging Imaging: ITS Impressions Abdomen X-Ray 10/06/18 00:00 CONCLUSION: Nonspecific bowel gas pattern with mildly distended air-filled loops of mid small bowel. Abdomen/Pelvis CT 10/06/18 02:21 CONCLUSION: 1. Acute diverticulitis involving the proximal sigmoid colon with small contained gas collection adjacent to the bowel. There is a small amount of fluid in the posterior pelvis. 2. The left ovary is more prominent than the right 3. Small noncalcified pulmonary nodule right lung base measuring approximately 6 mm. A one-year follow-up noncontrast chest CT is recommended. Assessment and Plan - Assessment (1) Diverticulitis of colon with perforation Code(s): K57.20 - Diverticulitis of large intestine with perforation and abscess without bleeding Status: Acute - Plan Diverticulitis with localized perforation. Exam is improved. repeat exam and labs in am. If continues to improve start on clears.
[2018-10-07] MEDS: Ketorolac Inj 30 MG/ML (IVP) Vial IV.PUSH PRN ×2 (17:25→23:17)
[2018-10-08] MEDS: HYDROmorphone PF Inj 1 MG/ML Ampul IV.PUSH PRN ×4 (03:18→23:35)
[2018-10-08] MEDS: Piperacil/Tazo 3.375 GM Premix 50 ML IV.SIG SCH ×4 (03:20→20:44)
[2018-10-08] MEDS: Sod Chloride 0.9% Inj 1,000 ML IV.CONT SCH ×5 (04:00→23:34)
[2018-10-08 07:20] LABS: Baso % (Auto) 0.2 % (0.0-2.0); Eos # (Auto) 0.1 th/mm3 (0.0-0.4); Eos % (Auto) 0.6 % (0.0-4.0); Hematocrit 30.4 % (35.0-46.0); Hemoglobin 10.2 gm/dL (11.6-15.3); Lymph # (Auto) 1.5 th/mm3 (1.0-4.8); Lymph % (Auto) 10.8 % (9.0-44.0); Mean Corpuscular HGB Conc 33.6 % (32.0-36.0); Mean Corpuscular Hemoglobin 30.3 pg (27.0-34.0); Mean Corpuscular Volume 90.1 fL (80.0-100.0); Mono # (Auto) 0.5 th/mm3 (0.0-0.9); Mono % (Auto) 3.9 % (0.0-8.0); Neut # (Auto) 11.5 th/mm3 (1.8-7.7); Neut % (Auto) 84.5 % (16.0-70.0); Platelet Count 190 th/mm3 (150-450); Red Blood Count 3.38 mil/mm3 (4.00-5.30); Red Cell Distribution Width 14.5 % (11.6-17.2); White Blood Count 13.6 th/mm3 (4.0-11.0)
[2018-10-08 07:45] LABS: Anion Gap 11 meq/L (5-15); Blood Urea Nitrogen 7 mg/dL (7-18); Calcium 7.7 mg/dL (8.5-10.1); Carbon Dioxide 24.1 meq/L (21.0-32.0); Chloride 106 meq/L (98-107); Glomerular Filtration Rate Greater Than 89 mL/min (>89); Glucose,Random 80 mg/dL (74-106); Potassium 3.3 meq/L (3.5-5.1); Sodium 141 meq/L (136-145)
[2018-10-08] MEDS: Ketorolac Inj 30 MG/ML (IVP) Vial IV.PUSH PRN (07:57)
[2018-10-08] MEDS: Senna/Docusate Sodium 8.6/50 MG Tablet PO SCH ×2 (09:17→20:45)
[2018-10-08] MEDS: Enoxaparin Inj 40 MG/0.4 ML Syringe SQ SCH (09:17)
[2018-10-08] MEDS: Citalopram 20 MG Tablet PO SCH (09:18)
[2018-10-08] MEDS ORDERED: Dicyclomine 10 MG Capsule PO ONE (09:22)
[2018-10-08] MEDS ORDERED: Potassium Chloride 10 MEQ ER Capsule PO ONE (11:39)
--- NOTE | 2018-10-08 11:42 | P.PNIM ---
Subjective Interval history: alot of "gas pains" . mostly over the left abdomen and flank Physical Exam Vital signs: Last Vital Signs Temp 98.8 F 10/08/18 08:00 Pulse 97 H 10/08/18 08:00 Resp 18 10/08/18 08:00 BP 136/75 10/08/18 08:00 Pulse Ox 95 10/08/18 08:00 Narrative: heart reg lung cta abdomen tenderness mostly on left abdomen. minimal bs ext no edema Results Labs CBC & Chem 7: 10/08/18 06:53 10/08/18 06:53 Assessment and Plan Assessment (1) Diverticulitis of colon with perforation: Code(s): K57.20 - Diverticulitis of large intestine with perforation and abscess without bleeding Status: Acute Plan Acute diverticulitis likely with microperforation/air noted on CT - Pt is a 43 y/o female with recent history of diverticulitis in 07/2018. She reports that she was hospitalized at [facility] for 10 days with acute diverticulitis and SBO. Pt required NGT placement and was treated with IV Cipro and Flagyl. Pt did not require any surgical intervention at that time. She states that after that discharge from the hospital her abdominal pain never fully resolved. She had another exacerbation of abdominal pain a few weeks ago and again was treated with oral Cipro and Flagyl. 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 - Labs in the ED noted elevated WBC count of 12.7. - CT Abd/pelvis (10/06/18): - Acute diverticulitis involving the proximal sigmoid colon with small contained gas collection adjacent to the bowel, a small amount of fluid in the posterior pelvis - Left ovary is more prominent than the right - Small noncalcified pulmonary nodule right lung base measuring approximately 6 mm. Pt recommended to have a repeat noncontrasted CT Chest in 1 year - General Surgical consultation. - continue iv zosyn. monitor labs - prn toradol and dilaudid -monitor for ileus - cont ivf. ambulation -diet per general surgery -prn zofran -dvt prophylaxis. Pulmonary nodule - Pt with incidental finding of pulmonary nodules in the right lung base - She will need repeat imaging as an outpt. Tobacco use - Nicotine patch. Progress Note: Quality VTE Deep Vein Thrombosis/Pulmonary Embolism Present on Admission: No _ (1) Diverticulitis of colon with perforation Qualifiers: Diverticulitis bleeding:
--- NOTE | 2018-10-08 13:37 | P.PNGS ---
Subjective Patient reports: still having pain, flatus, diarrhea Physical Exam Vital signs: Vital Signs 10/07/18 16:00 10/07/18 20:00 10/08/18 00:00 Temperature 98.1 F 98.1 F 99 F Pulse Rate 100 H 76 72 Respiratory Rate 20 16 14 Blood Pressure 99/67 L 116/58 L 118/72 Pulse Oximetry 96 96 98 10/08/18 01:01 10/08/18 03:28 10/08/18 08:00 Temperature 98.8 F 98.8 F Pulse Rate 78 97 H Respiratory Rate 19 16 18 Blood Pressure 122/62 136/75 Pulse Oximetry 96 95 10/08/18 12:00 Temperature 101.6 F H Pulse Rate 101 H Respiratory Rate 18 Blood Pressure 148/74 H Pulse Oximetry 96 Intake & Output 10/07/18 10/08/18 10/08/18 18:59 06:59 18:59 Intake Total 1300 / 1300 2100 / 2100 870 / 870 Output Total 400 / 400 600 / 600 Balance 900 / 900 1500 / 1500 870 / 870 Weight 117.9 kg Intake: IV 1300 / 1300 2100 / 2100 870 / 870 NS Inj 1,000 ML @ 125 mls/hr IV 1200 / 1200 2000 / 2000 820 / 820 .CONT .Q8H [facility] Rx#:[id number] Zosyn 3.375 GM Premix 50 ML @ 100 / 100 100 / 100 50 / 50 100 mls/hr IV.SIG Q6H [facility] Rx#: [id number] Output: Urine 400 / 400 600 / 600 Other: Date of Last Bowel Movement 10/08/18 # Bowel Movements 1 - Constitutional no acute distress - Routine Respiratory Exam Absent: accessory muscle use - Routine Abdominal Exam Present: soft, tenderness, distended. Absent: rebound, guarding Results - Labs 10/08/18 06:53 10/08/18 06:53 Laboratory Results - last 24 hr 10/08/18 10/08/18 06:53 06:53 WBC 13.6 H RBC 3.38 L Hgb 10.2 L Hct 30.4 L MCV 90.1 MCH 30.3 MCHC 33.6 RDW 14.5 Plt Count 190 MPV 9.0 Neut % (Auto) 84.5 H Lymph % (Auto) 10.8 [place] % (Auto) 3.9 Eos % (Auto) 0.6 Baso % (Auto) 0.2 Neut # (Auto) 11.5 H Lymph # (Auto) 1.5 [place] # (Auto) 0.5 Eos # (Auto) 0.1 Baso # (Auto) 0.0 WBC Differential . Differential Comment Auto diff final Sodium 141 Potassium 3.3 L Chloride 106 Carbon Dioxide 24.1 Anion Gap 11 BUN 7 Creatinine 0.71 Estimated GFR Greater than 89 Random Glucose 80 Calcium 7.7 L - Imaging Imaging: ITS Impressions Abdomen X-Ray 10/06/18 00:00 CONCLUSION: Nonspecific bowel gas pattern with mildly distended air-filled loops of mid small bowel. Abdomen/Pelvis CT 10/06/18 02:21 CONCLUSION: 1. Acute diverticulitis involving the proximal sigmoid colon with small contained gas collection adjacent to the bowel. There is a small amount of fluid in the posterior pelvis. 2. The left ovary is more prominent than the right 3. Small noncalcified pulmonary nodule right lung base measuring approximately 6 mm. A one-year follow-up noncontrast chest CT is recommended. Assessment and Plan - Assessment (1) Diverticulitis of colon with perforation Code(s): K57.20 - Diverticulitis of large intestine with perforation and abscess without bleeding Status: Acute Plan: cont iv abx start clears ambulate in hallway
[2018-10-09] MEDS: Ketorolac Inj 30 MG/ML (IVP) Vial IV.PUSH PRN ×2 (03:31→19:18)
[2018-10-09] MEDS: Piperacil/Tazo 3.375 GM Premix 50 ML IV.SIG SCH ×4 (03:31→21:38)
[2018-10-09] MEDS: Sod Chloride 0.9% Inj 1,000 ML IV.CONT SCH ×2 (03:31→07:56)
[2018-10-09] MEDS: Citalopram 20 MG Tablet PO SCH (07:59)
[2018-10-09] MEDS: Senna/Docusate Sodium 8.6/50 MG Tablet PO SCH ×2 (07:59→21:39)
[2018-10-09] MEDS: Enoxaparin Inj 40 MG/0.4 ML Syringe SQ SCH (07:59)
[2018-10-09 09:36] LABS: Baso % (Auto) 0.2 % (0.0-2.0); Eos # (Auto) 0.1 th/mm3 (0.0-0.4); Eos % (Auto) 0.8 % (0.0-4.0); Hematocrit 32.2 % (35.0-46.0); Hemoglobin 11.1 gm/dL (11.6-15.3); Lymph # (Auto) 1.6 th/mm3 (1.0-4.8); Lymph % (Auto) 10.9 % (9.0-44.0); Mean Corpuscular HGB Conc 34.4 % (32.0-36.0); Mean Corpuscular Hemoglobin 30.8 pg (27.0-34.0); Mean Corpuscular Volume 89.4 fL (80.0-100.0); Mean Platelet Volume 9.2 fL (7.0-11.0); Mono % (Auto) 6.3 % (0.0-8.0); Neut # (Auto) 12.4 th/mm3 (1.8-7.7); Neut % (Auto) 81.8 % (16.0-70.0); Platelet Count 236 th/mm3 (150-450); Red Cell Distribution Width 14.3 % (11.6-17.2); White Blood Count 15.2 th/mm3 (4.0-11.0)
--- NOTE | 2018-10-09 09:39 | P.PNIM ---
Subjective Interval history: overall less pain. ambulating tolerated clears. slightly more formed stools Physical Exam Vital signs: Last Vital Signs Temp 98.3 F 10/09/18 08:00 Pulse 88 10/09/18 08:00 Resp 18 10/09/18 08:00 BP 129/58 L 10/09/18 08:00 Pulse Ox 98 10/09/18 08:00 Narrative: heart reg lung cta abdomen soft. no rebound. bs much less tenderness over left side of abdomen. ext no edema Results Labs CBC & Chem 7: 10/09/18 08:57 10/08/18 06:53 Assessment and Plan Assessment (1) Diverticulitis of colon with perforation: Code(s): K57.20 - Diverticulitis of large intestine with perforation and abscess without bleeding Status: Acute Plan Acute diverticulitis likely with microperforation/air noted on CT - Pt is a 43 y/o female with recent history of diverticulitis in 07/2018. She reports that she was hospitalized at [facility] for 10 days with acute diverticulitis and SBO. Pt required NGT placement and was treated with IV Cipro and Flagyl. Pt did not require any surgical intervention at that time. She states that after that discharge from the hospital her abdominal pain never fully resolved. She had another exacerbation of abdominal pain a few weeks ago and again was treated with oral Cipro and Flagyl. 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 - Labs in the ED noted elevated WBC count of 12.7. - CT Abd/pelvis (10/06/18): - Acute diverticulitis involving the proximal sigmoid colon with small contained gas collection adjacent to the bowel, a small amount of fluid in the posterior pelvis - Left ovary is more prominent than the right - Small noncalcified pulmonary nodule right lung base measuring approximately 6 mm. Pt recommended to have a repeat noncontrasted CT Chest in 1 year - General Surgical consultation. - continue iv zosyn. monitor labs - prn toradol and dilaudid -monitor for ileus - cont ivf. ambulation -diet per general surgery -prn zofran -dvt prophylaxis. overall pt appears clinically improved with less pain. still with fever. discuss with gen surg. Pulmonary nodule - Pt with incidental finding of pulmonary nodules in the right lung base - She will need repeat imaging as an outpt. Tobacco use - Nicotine patch. Progress Note: Quality VTE Deep Vein Thrombosis/Pulmonary Embolism Present on Admission: No _ (1) Diverticulitis of colon with perforation Qualifiers: Diverticulitis bleeding:
[2018-10-09 10:00] LABS: Calcium 7.9 mg/dL (8.5-10.1); Carbon Dioxide 25.7 meq/L (21.0-32.0); Potassium 3.1 meq/L (3.5-5.1)
[2018-10-09] MEDS: Dicyclomine 10 MG Capsule PO PRN ×2 (10:23→19:18)
[2018-10-09] MEDS: HYDROmorphone PF Inj 1 MG/ML Ampul IV.PUSH PRN ×3 (10:23→21:41)
[2018-10-09] MEDS ORDERED: Potassium Chloride 10 MEQ ER Capsule PO ONE (11:00)
[2018-10-10] MEDS: Piperacil/Tazo 3.375 GM Premix 50 ML IV.SIG SCH ×4 (03:09→20:28)
[2018-10-10] MEDS: Ketorolac Inj 30 MG/ML (IVP) Vial IV.PUSH PRN ×3 (04:22→20:29)
[2018-10-10] MEDS: Dicyclomine 10 MG Capsule PO PRN ×2 (04:23→12:17)
[2018-10-10 06:20] LABS: Baso % (Auto) 0.3 % (0.0-2.0); Eos # (Auto) 0.2 th/mm3 (0.0-0.4); Eos % (Auto) 1.9 % (0.0-4.0); Hematocrit 28.5 % (35.0-46.0); Hemoglobin 9.7 gm/dL (11.6-15.3); Lymph # (Auto) 1.3 th/mm3 (1.0-4.8); Lymph % (Auto) 10.8 % (9.0-44.0); Mean Corpuscular HGB Conc 34.2 % (32.0-36.0); Mean Corpuscular Hemoglobin 30.2 pg (27.0-34.0); Mean Corpuscular Volume 88.3 fL (80.0-100.0); Mean Platelet Volume 9.1 fL (7.0-11.0); Mono # (Auto) 0.9 th/mm3 (0.0-0.9); Mono % (Auto) 6.9 % (0.0-8.0); Neut # (Auto) 9.9 th/mm3 (1.8-7.7); Neut % (Auto) 80.1 % (16.0-70.0); Platelet Count 243 th/mm3 (150-450); Red Blood Count 3.22 mil/mm3 (4.00-5.30); Red Cell Distribution Width 14.6 % (11.6-17.2); White Blood Count 12.4 th/mm3 (4.0-11.0)
[2018-10-10 06:48] LABS: Anion Gap 8 meq/L (5-15); Blood Urea Nitrogen 5 mg/dL (7-18); Calcium 7.9 mg/dL (8.5-10.1); Carbon Dioxide 25.8 meq/L (21.0-32.0); Chloride 105 meq/L (98-107); Glomerular Filtration Rate Greater Than 89 mL/min (>89); Glucose,Random 85 mg/dL (74-106); Potassium 3.4 meq/L (3.5-5.1); Sodium 139 meq/L (136-145)
[2018-10-10] MEDS: Enoxaparin Inj 40 MG/0.4 ML Syringe SQ SCH (09:44)
[2018-10-10] MEDS: Senna/Docusate Sodium 8.6/50 MG Tablet PO SCH ×2 (09:45→20:28)
[2018-10-10] MEDS: Citalopram 20 MG Tablet PO SCH (09:45)
[2018-10-10] MEDS: HYDROmorphone PF Inj 1 MG/ML Ampul IV.PUSH PRN ×2 (09:52→16:22)
--- NOTE | 2018-10-10 18:14 | P.PNIM ---
Subjective Interval history: still with mostly left sided pain liquid stools mostly. no vomiting eager for dc Physical Exam Vital signs: Last Vital Signs Temp 98.5 F 10/10/18 16:00 Pulse 78 10/10/18 16:00 Resp 18 10/10/18 16:00 BP 121/77 10/10/18 16:00 Pulse Ox 97 10/10/18 16:00 Narrative: heart reg lung cta abdomen soft. no rebound. bs much less tenderness over left side of abdomen. ext no edema Results Labs CBC & Chem 7: 10/10/18 05:15 10/10/18 05:15 Assessment and Plan Assessment (1) Diverticulitis of colon with perforation: Code(s): K57.20 - Diverticulitis of large intestine with perforation and abscess without bleeding Status: Acute Plan Acute diverticulitis likely with microperforation/air noted on CT - Pt is a 43 y/o female with recent history of diverticulitis in 07/2018. She reports that she was hospitalized at [facility] for 10 days with acute diverticulitis and SBO. Pt required NGT placement and was treated with IV Cipro and Flagyl. Pt did not require any surgical intervention at that time. She states that after that discharge from the hospital her abdominal pain never fully resolved. She had another exacerbation of abdominal pain a few weeks ago and again was treated with oral Cipro and Flagyl. 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 - Labs in the ED noted elevated WBC count of 12.7. - CT Abd/pelvis (10/06/18): - Acute diverticulitis involving the proximal sigmoid colon with small contained gas collection adjacent to the bowel, a small amount of fluid in the posterior pelvis - Left ovary is more prominent than the right - Small noncalcified pulmonary nodule right lung base measuring approximately 6 mm. Pt recommended to have a repeat noncontrasted CT Chest in 1 year - General Surgical consultation. - continue iv zosyn. monitor labs - prn toradol and dilaudid -monitor for ileus - cont ivf. ambulation -diet advanced to full liquid -prn zofran -dvt prophylaxis. overall pt appears clinically improved with less pain. If no fever overnight then possible dc home [place] with close surgical f/u and reevaluation need for surgery. Pulmonary nodule - Pt with incidental finding of pulmonary nodules in the right lung base - She will need repeat imaging as an outpt. Tobacco use - Nicotine patch. Progress Note: Quality VTE Deep Vein Thrombosis/Pulmonary Embolism Present on Admission: No _ (1) Diverticulitis of colon with perforation Qualifiers: Diverticulitis bleeding:
[2018-10-11] MEDS: Piperacil/Tazo 3.375 GM Premix 50 ML IV.SIG SCH ×2 (02:16→09:52)
[2018-10-11] MEDS: Ketorolac Inj 30 MG/ML (IVP) Vial IV.PUSH PRN (02:16)
[2018-10-11] MEDS: HYDROmorphone PF Inj 1 MG/ML Ampul IV.PUSH PRN ×2 (04:53→11:40)
[2018-10-11 07:57] LABS: Anion Gap 7 meq/L (5-15); Blood Urea Nitrogen 4 mg/dL (7-18); Calcium 7.8 mg/dL (8.5-10.1); Carbon Dioxide 26.2 meq/L (21.0-32.0); Chloride 107 meq/L (98-107); Glucose,Random 90 mg/dL (74-106); Potassium 3.6 meq/L (3.5-5.1); Sodium 140 meq/L (136-145)
[2018-10-11 07:58] LABS: Glomerular Filtration Rate Greater Than 89 mL/min (>89)
[2018-10-11] MEDS: Citalopram 20 MG Tablet PO SCH (09:52)
[2018-10-11] MEDS: Enoxaparin Inj 40 MG/0.4 ML Syringe SQ SCH (09:52)
[2018-10-11] MEDS: Senna/Docusate Sodium 8.6/50 MG Tablet PO SCH (09:53)
--- NOTE | 2018-10-11 20:45 | P.DS ---
DS: Providers Date of admission: 10/06/18 05:31 Primary care physician: Jose M Alonso Consults: 10/06/18 15:33 Consult to General Surgery Routine Consulting Provider: Josef Gagnon Office Copy Selector:: Josef Gagnon Reason for Consultation: Diverticulitis with contained perforation Notified:: Service Spoke with:: YUNIER Date Notified:: 10/06/18 Time Notified:: 15:39 Ordering Provider: EVA Brief History from admission: Mrs. Hernández is a pleasant 43 y/o female with recent history of diverticulitis in 07/2018. She reports that she was hospitalized at [facility] for 10 days with acute diverticulitis and SBO. Pt required NGT placement and was treated with IV Cipro and Flagyl. PT did not require any surgical intervention at that time. She states that after that discharge from the hospital her abdominal pain never fully resolved. She had another exacerbation of abdominal pain a few weeks ago and again was treated with oral Cipro and Flagyl. 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 No reported nausea/vomiting, diarrhea, fevers or chills. She was sent down to the ED for further evaluation. Labs in the ED noted elevated WBC count of 12.7. CT Abd/pelvis was performed and revealed acute diverticulitis involving the proximal sigmoid colon with small contained gas collection adjacent to the bowel, a small amount of fluid in the posterior pelvis, left ovary is more prominent than the right, and a small noncalcified pulmonary nodule right lung base measuring approximately 6 mm. Pt was given a dose of IV Morphine, Cipro and Flagyl in the ED and started on IVF. She reports that the Morphine did not help with the pain much at all. She states that her last BM was 2-3 days ago which is not unusual for her. She had been seen by GI outpt prior to this last occurrence of diverticulitis and was recommended to have an EGD/colonoscopy but was to be fully treated prior to these procedures. Past Medical Hx: Diverticulitis Hx of leukocytosis, etiology undetermined Depression TObacco use Past Surgical Hx: Cesarian section x 2 Appendectomy Family Hx: Both parent with previous diverticulitit Grandmother with hx of colon cancer in her 60-70s Social Hx: (+)Tobacco use, smokes 3/4 ppd x 20+ years Denies any alcohol or illicit drug use She is an RN at [employer] DS: Diagnosis Discharge Diagnosis (1) Diverticulitis of colon with perforation: Status: Acute DS: Summary Assessment and Plan Assessment (1) Diverticulitis of colon with perforation: Code(s): K57.20 - Diverticulitis of large intestine with perforation and abscess without bleeding Status: Acute Plan Acute diverticulitis likely with microperforation/air noted on CT - Pt is a 43 y/o female with recent history of diverticulitis in 07/2018. She reports that she was hospitalized at [facility] for 10 days with acute diverticulitis and SBO. Pt required NGT placement and was treated with IV Cipro and Flagyl. Pt did not require any surgical intervention at that time. She states that after that discharge from the hospital her abdominal pain never fully resolved. She had another exacerbation of abdominal pain a few weeks ago and again was treated with oral Cipro and Flagyl. 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 - Labs in the ED noted elevated WBC count of 12.7. - CT Abd/pelvis (10/06/18): - Acute diverticulitis involving the proximal sigmoid colon with small contained gas collection adjacent to the bowel, a small amount of fluid in the posterior pelvis - Left ovary is more prominent than the right - Small noncalcified pulmonary nodule right lung base measuring approximately 6 mm. Pt recommended to have a repeat noncontrasted CT Chest in 1 year - General Surgical consultation. - pt given iv zosyn in hospital - prn toradol and dilaudid and bentyl use for pain - Pt was given ivf hydration - Pt had steady improvement in her abdomen pain. she had some brown liquid stools during the admission and at dc. she had no fever x 24hr prior to dc home. - She was followed by general surgery and pt will follow Dr Gagnon in office. She is still on liquid diet. If her pain persists or obvioius recurrence then I think pt will need surgical intervention. - She was discharged on levaquin/flagyl x 10more days. Pulmonary nodule - Pt with incidental finding of pulmonary nodules in the right lung base - She will need repeat imaging as an outpt. in 1 yr per radiology protocol - discussed it with her. She has a copy of the report. She will take it to her pcp and follow the nodule. Tobacco use - cessation discussed Time Spent with Patient Total time spent providing and/or coordinating discharge services: Quality: VTE Deep Vein Thrombosis/Pulmonary Embolism Present on Admission: No Results Labs on day of discharge: Labs from last 24 hours 10/11/18 07:00 Sodium 140 Potassium 3.6 Chloride 107 Carbon Dioxide 26.2 Anion Gap 7 BUN 4 L Creatinine 0.50 Estimated GFR Greater than 89 Random Glucose 90 Calcium 7.8 L Impressions ITS Impressions Abdomen X-Ray 10/06/18 00:00 CONCLUSION: Nonspecific bowel gas pattern with mildly distended air-filled loops of mid small bowel. Abdomen/Pelvis CT 10/06/18 02:21 CONCLUSION: 1. Acute diverticulitis involving the proximal sigmoid colon with small contained gas collection adjacent to the bowel. There is a small amount of fluid in the posterior pelvis. 2. The left ovary is more prominent than the right 3. Small noncalcified pulmonary nodule right lung base measuring approximately 6 mm. A one-year follow-up noncontrast chest CT is recommended. Discharge Plan Discharge Disposition Patient Disposition: Discharge Home Discharge Condition Condition: Stable Discharge Order Discharge Orders: Discharge Order (Routine); Ordered 10/11/18 Ordered By: Joel Granados Discharge Details Anticipated Discharge Date: 10/11/18 Discharge Comment: give pt copy of her CT abdomen /pelvis report to take to pcp. Physicians Team Primary Care Provider: Jose M Alonso Attending Provider: Arnulfo Alva Other Providers: Josef Gagnon Rxs /Orders / Referrals /Forms Prescriptions: New dicyclomine 10 mg Capsule 10 mg PO QID PRN (Reason: bowel spasm) Qty: 15 RF: 0 levofloxacin [Levaquin] 500 mg tablet 500 mg PO DAILY 10 Days Qty: 10 RF: 0 metronidazole [Flagyl] 500 mg tablet 500 mg PO Q8H 10 Days Qty: 30 RF: 0 hydrocodone-acetaminophen [[place]] 10-325 mg tablet 1 tab PO Q4H PRN (Reason: pain) Qty: 18 RF: 0 Continue citalopram [Celexa] 20 mg Tablet 20 mg PO DAILY RF: 0 Referrals: Jose M Alonso M.D. [Primary Care Provider] - See Instructions (1-2 weeks.) Josef Gagnon MD [GENERAL SURGERY] - See Instructions (f/u 7-10days) Stand Alone Forms: Work Release/Restrictions Discharge Instructions Patient Printed Instructions: Dicyclomine (By mouth), Hydrocodone/ Acetaminophen (By mouth), Metronidazole (By mouth), Levofloxacin (By mouth), Citalopram (By mouth), How to Stop Smoking (DC), Diverticulitis (DC), Pulmonary Nodules (DC) Status ED Status: Left Department Discharge Information Discharge Date/Time: 10/11/18 15:45
== END 2018-10-11 15:45 | disposition home or self-care (01) ==
LOC: NEPC 02:00 → NEDA 05:31 → NEDH 08:48 → N04 13:24
PROVIDERS: ADMIT Hospitalist; ATTEND Hospitalist